=== PATIENT | female | born 1975 | race Two or more races ===

== ENCOUNTER 2019-01-27 06:42 | Day surgery (SDC) | payer OTHER ==
[~2019-01-27 06:42] MED LIST: Buffered Lidocaine 1% SYRIN* 1 ML/SYRINGE INTRADERM ONE; Famotidine IV* 10 MG/ML 2 ML (20 mg) IV ONE; Lactated Ringers 1000 ML Bag* 1,000 ML IV SCH
[2019-01-27] MEDS ORDERED: Ondansetron INJ* 2 MG/ML VIAL ONE (07:21)
[2019-01-27] MEDS ORDERED: Famotidine IV* 10 MG/ML 2 ML (20 mg) ONE (07:21)
[2019-01-27] MEDS ORDERED: Buffered Lidocaine 1% SYRIN* 1 ML/SYRINGE INTRADERM ONE (07:21)
[2019-01-27] MEDS ORDERED: Clindamycin 900 MG IVPREMIX(* 900 MG/50 ML SDV IV ONE (07:21)
[2019-01-27] MEDS ORDERED: Scopolamine 1.5 mg* PATCH ONE (07:21)
[2019-01-27] MEDS ORDERED: Dexamethasone IV* 4 MG/ML 1 ML (4 MG) ONE (07:21)
[2019-01-27] MEDS ORDERED: Midazolam* 1 MG/ML 5 ML VIAL (5 MG) ONE (08:01)
[2019-01-27] MEDS ORDERED: Propofol* 10 MG/ML 20 ML BTL ONE (08:01)
[2019-01-27] MEDS ORDERED: fentaNYL* 50 MCG/ML 5 ML VIAL (250 MCG VIAL) ONE (08:01)
[2019-01-27] MEDS ORDERED: Lidocaine 2% PF * 5 ML VIAL ONE (08:02)
[2019-01-27] MEDS ORDERED: Bupivacaine 0.25% SDV PF* 10 ML VIAL INJ ONE (08:44)
[2019-01-27] MEDS ORDERED: Lidocaine 1% w EPI 1:100,000* 30 ML VIAL ONE (08:44)
[2019-01-27] MEDS ORDERED: DiMENhydriNATE IV* 50 MG/ML VIAL IV PUSH PRN (08:57)
[2019-01-27] MEDS ORDERED: HYDROcodone/ACETAMIN 5-325 MG* 1 TAB PO PRN (08:57)
[2019-01-27] MEDS ORDERED: Naloxone* 0.4 MG/ML 1 ML VIAL IV PRN (08:57)
[2019-01-27] MEDS ORDERED: oxyCODONE/Acetamin 5/325 MG* TAB PO PRN (08:57)
[2019-01-27] MEDS ORDERED: Phenylephrine 40 MCG/ML SYRINGE ONE (09:31)
[2019-01-27] MEDS ORDERED: fentaNYL* 50 MCG/ML 2 ML VIAL (100 MCG VIAL) ONE ×3 (11:14→14:16)
[2019-01-27] MEDS: fentaNYL* 50 MCG/ML 2 ML VIAL (100 MCG VIAL) IV PRN ×4 (12:56→14:35)
[2019-01-27] MEDS ORDERED: HYDROcodone/ACETAMIN 5-325 MG* 1 TAB ONE (13:22)
[2019-01-27] MEDS ORDERED: DiMENhydriNATE IV* 50 MG/ML VIAL ONE (16:21)
[2019-01-27 17:19] VITALS: BP 116/81
== END 2019-01-27 17:00 | disposition home or self-care (01) ==
LOC: OR 06:42
PROVIDERS: ATTEND Plastic Surgery
DX: N62 Hypertrophy of breast (principal); M54.5 Low back pain; M54.2 Cervicalgia; M54.9 Dorsalgia, unspecified; Z87.891 Personal history of nicotine dependence
CPT/HCPCS: 88305; A9270-GY; A9272-GY; J1100; J1240; J2250; J2405; J2704; J3010; J3490